=== PATIENT | female | born 1945 | race Caucasian/White ===

== ENCOUNTER 2018-06-21 05:57 | Emergency (ER) | payer MEDICARE ==
[2018-06-21] MEDS ORDERED: Ibuprofen TAB* 600 MG PO ONE (06:15)
[2018-06-21 07:56] VITALS: BP 158/95
--- NOTE | 2018-06-21 07:56 | ED ---
Upper Extremity Pain - HPI Summary HPI Summary: Patient's symptoms she will female presenting to the ED with complaint of right arm and clavicle injury after falling approximately 11 PM last night. She endorses worsening pain over the midshaft of the right humerus is having difficulty with abduction and abduction. Symptoms resolved with internal rotation and flexion of the shoulder. There is ecchymosis to the midshaft of the humerus. Denies any other injuries. She has taken one hydrocodone at home with mild amount of relief. She has not been taking any ibuprofen at this time. She is never injured the arm before. - History of Current Complaint Chief Complaint: EDSjuanaldBreej Stated Complaint: FALL, RIGHT SHOULDER INJURY Time Seen by Provider: 06/21/18 06:01 Hx Obtained From: Patient Mechanism Of Injury: Direct Blow Onset/Duration: Started Hours Ago Timing: Constant Severity Initially: Moderate Severity Currently: Moderate Pain Location: Shoulder, Arm Character: Aching Aggravating Factor(s): Lifting, Internal/External Rotation, Abduction, Adduction Alleviating Factor(s): Other - Internal rotation Associated Signs & Symptoms: Positive: Bruising. Negative: Swelling, Redness, Numbness/Tingling, Chest Pain Related History: Dominant Hand Right - Risk Factors Non-Orthopedic Risk Factor: Negative DVT Risk Factors: Negative Septic Arthritis Risk Factor: Negative Compartment Syndrome Risk Factors: Pain - Allergies/Home Medications Allergies/Adverse Reactions: Allergies Allergy/AdvReac Type Severity Reaction Status Date / Time ampicillin Allergy Hives Verified 06/21/18 06:03 PMH/Surg Hx/FS Hx/Imm Hx Previously Healthy: Yes - Cancer History Hx Chemotherapy: No Hx Radiation Therapy: No - Immunization History Hx Pertussis Vaccination: No Immunizations Up to Date: Unable to Obtain/Confirm Infectious Disease History: No Infectious Disease History: Denies: Traveled Outside the [place] in Last 30 Days - Social History Occupation: Unemployed Lives: With Family Alcohol Use: None Hx Substance Use: No Substance Use Type: Reports: None Hx Tobacco Use: No Smoking Status (MU): Never Smoked Tobacco Review of Systems Constitutional: Negative Negative: Fever, Chills, Fatigue, Skin Diaphoresis Negative: Palpitations, Chest Pain Negative: Shortness Of Breath, Cough Genitourinary: Negative Positive: no symptoms reported Positive: Arthralgia, Myalgia Positive: Bruising Neurological: Negative All Other Systems Reviewed And Are Negative: Yes Physical Exam Triage Information Reviewed: Yes Vital Signs On Initial Exam: Initial Vitals Temp Pulse Resp BP Pulse Ox 97.8 F 85 16 167/92 96 06/21/18 05:59 06/21/18 05:59 06/21/18 05:59 06/21/18 05:59 06/21/18 05:59 Vital Signs Reviewed: Yes Appearance: Positive: Well-Appearing, Well-Nourished Skin: Positive: Warm, Skin Color Reflects Adequate Perfusion Head/Face: Positive: Normal Head/Face Inspection Eyes: Positive: EOMI, AZAEL, Conjunctiva Clear Respiratory/Lung Sounds: Positive: Clear to Auscultation, Breath Sounds Present Cardiovascular: Positive: Normal, RRR, Pulses are Symmetrical in both Upper and Lower Extremities Musculoskeletal: Positive: Pain @ - right humerus and clavicle pain Neurological: Positive: Speech Normal Psychiatric: Positive: Normal, Affect/Mood Appropriate Diagnostics - Vital Signs Vital Signs Temp Pulse Resp BP Pulse Ox 06/21/18 07:21 154/88 06/21/18 05:59 97.8 F 85 16 167/92 96 - Laboratory Lab Statement: Any lab studies that have been ordered have been reviewed, and results considered in the medical decision making process. Course/Dx - Course Course Of Treatment: During the course of treatment, the patient's evaluated for pain to the humerus and clavicle after sustaining a fall yesterday. There is ecchymosis to the mid shaft of the humerus. X-ray of the humerus and clavicle are obtained which shows no acute findings. X-rays were read by myself , Chelsea Coombs PA-C as well as Dr. Santana and Dr. Hartman. We'll await for final reads and call if necessary for any differing results. She is given ibuprofen 6 her milligrams while in the ED. Sling is given. Follow up with orthopedics is given, specifically for any fracture identified. - Diagnoses Provider Diagnoses: Arm contusion Discharge - Sign-Out/Discharge Documenting (check all that apply): Patient Departure - Discharge Plan Condition: Stable Disposition: HOME Patient Education Materials: Contusion in Adults (ED) Referrals: Felipe Staples MD [Primary Care Provider] - Radha Edwards MD [Medical Doctor] - Additional Instructions: Ibuprofen 600mg three times daily Keep the arm in the sling for comfort If you develop worsening pain or worsening symptoms - follow up with orthopedics Keep movement in the arm and attempt to move it every few hours - Billing Disposition and Condition Condition: STABLE Disposition: Home
--- NOTE | 2018-06-21 08:07 | RAD ---
Indication: Fall, right shoulder injury. 2 views of the right clavicle demonstrates AC joint arthritis. No fracture is identified. Superiorly subluxed humeral head is noted. IMPRESSION: Superiorly subluxed humeral head with AC joint arthritis. No fracture of the clavicle is noted. R1
--- NOTE | 2018-06-21 08:14 | RAD ---
Indication: Fall, right humerus injury. 2 views of the right humerus demonstrates no fracture. No other bone or joint abnormality is noted. IMPRESSION: No fracture of the right humerus noted. R1
== END 2018-06-21 07:55 | disposition home or self-care (01) ==
LOC: ED 05:57
DX: S40.021A Contusion of right upper arm, initial encounter (principal); M79.601 Pain in right arm; W19.XXXA Unspecified fall, initial encounter; Y92.9 Unspecified place or not applicable
CPT/HCPCS: 99282; A9270-GY

== ENCOUNTER 2018-08-30 10:07 | Emergency (ER) | payer MEDICARE ==
--- OUTSIDE RECORDS SUMMARY | 2018-08-30 10:17 | XMS REPORT ---
:1945 External Reference #:[id number] Author Organization [facility] Address [address] [place] [address] Phone [phone] Care Team Providers Name Role Phone Felipe Staples MD Primary Care Physician Unavailable Payers Type Date Identification Numbers Payment Provider Subscriber Commercial Policy Number: [id number] [employer] Medicare China Silva PayID: [id number] [address] [place] [address] Problems Date Description Provider Status Onset: 08/01/2018 Full thickness rotator cuff tear Jamie Landin MD Active Onset: 08/01/2018 Localized, primary osteoarthritis of the Jamie Landin MD Active shoulder region Family History Date Family Member(s) Problem(s) Comments General Diabetes General Heart Disease General Hypertension General Stroke General Cancer General Rheumatoid Arthritis Father [place] age 51 Mother Hypercholesterolemia Social History Type Date Description Comments Marital Status Lives With Spouse Occupation Retired ETOH Use Occasionally consumes alcohol Smoking Patient has never smoked Recreational Drug Use Denies Drug Use Daily Caffeine Consumes on average 1 cup of regular coffee per day Exercise Type/Frequency Exercises sporadically Allergies, Adverse Reactions, Alerts Date Description Reaction Status Severity Comments 07/09/2018 Ampicillin active Medications Medication Date Status Form Strength Qnty SIG Indications Ordering Provider Atenolol 08/28/ Active Tablets 25mg 30tabs 1 by Gabriel 2018 mouth qd Gaston Munguia M.D. Metformin HCL / Active Tablets 1000mg take 1 Darlow, 0000 tab po Felipe Avila bid Losartan 00/ Active Tablets 50mg take 1 po Darlow, Potassium 0000 daily Felipe Avila MD Hydrocodone-Aceta / Active Tablets 5-325mg 1 po Darlow, minophen 0000 every 6 Felipe A., hours prn MD for pain Glipizide ER / Active Tablets ER 5mg take 3 Darlow, 0000 24HR tabs po Felipe A., in the am Omeprazole / Active Capsules 20mg 1 capsule Darlow, 0000 DR po daily Felipe Avila, Amlodipine / Active Tablets 10mg take 1 Darlow, Besylate 0000 tab po Felipe A., daily Duloxetine HCL / Active Caps DR 60mg 1 po Joseluis, 0000 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 , 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 Multivitamin / Active 1 tab po Unknown 0000 daily Aspirin 81 Low / Active 1 by Unknown Dose 0000 mouth every day Fish Oil / Active Capsules 1200mg 1 capsule Unknown 0000 po daily Valerian Root / Active Capsules 300-600 Unknown 0000 mg at bedtime Econazole Nitrate / Active Cream 1% apply 1-2 Unknown 0000 times every day to affected areas Red Yeast Rice / Active Capsules 600mg 1 Unknown Extract 0000 capsules po bid Colace / Active Capsules 100mg 1 tab by Unknown 0000 mouth 2 times a day Meclizine HCL / Active Tablets 25mg 1 tablet Unknown 0000 every 6 hours as needed for vertigo Garlic / Active Capsules 1000mg 1 capsule Unknown 0000 po daily Voltaren / Active Gel 1% apply 2 Unknown 0000 grams to painful areas four times a day Cranberry Extract / Active Tablets 450mg 1 cap by Unknown 0000 mouth daily Vitamin B-12 / Active Tablets 1000mcg 1 by Unknown 0000 mouth twice daily Vitamin D3 / Active Capsules 5000Unit 1 by Unknown 0000 mouth every day Cyclobenzaprine / Hx Tablets 5mg take 1-2 Unknown HCL 0000 - tablet 07/16/ 2017 night at bedtime prn Probiotic Daily / Hx Capsules 1 by Unknown 0000 - mouth 07/16/ every day 2017 Medications Administered in Office Medication Date Status Form Strength Qnty SIG Indications Ordering Provider Inj, Administered Injection Vin Lindsey Regadenoson, 018 Jessica Caballero 0.1 MG Technetium TC Administered Injection Vin Lindsey 99M 018 Jessica Caballero Tetrofosmin, Per Unit Dose Up To 40 Millicuries Vital Signs Date Vital Result Comment 08/29/2018 Height 64.5 inches 5'4.50" Weight 189.00 lb BP Systolic 144 mmHg BP Diastolic 78 mmHg Respiratory Rate 18 /min Body Temperature 97.8 F Pain Level 10 BMI (Body Mass Index) 31.9 kg/m2 08/28/2018 Height 64.5 inches 5'4.50" Weight 187.00 lb w/shoes Heart Rate 94 /min BP Systolic Sitting 152 mmHg Lue reg cuff BP Diastolic Sitting 102 mmHg Lue reg cuff BMI (Body Mass Index) 31.6 kg/m2 Ejection Fraction 55-60% Echo 07/31/18 08/01/2018 Height 64.5 inches 5'4.50" Weight 187.00 lb Heart Rate 74 /min BP Systolic 128 mmHg BP Diastolic 72 mmHg Respiratory Rate 12 /min Pain Level 10 BMI (Body Mass Index) 31.6 kg/m2 07/30/2018 Height 64.5 inches 5'4.50" Weight 189.00 lb BP Systolic 122 mmHg BP Diastolic 72 mmHg Respiratory Rate 16 /min Body Temperature 97.1 F Pain Level 8 BMI (Body Mass Index) 31.9 kg/m2 07/17/2018 Height 64.5 inches 5'4.50" Weight 189.00 lb w/shoes Heart Rate 90 /min BP Systolic Sitting 160 mmHg Lue lg cuff BP Diastolic Sitting 102 mmHg Lue lg cuff BMI (Body Mass Index) 31.9 kg/m2 07/09/2018 Height 64.5 inches 5'4.50" Weight 188.00 lb Heart Rate 84 /min BP Systolic 140 mmHg BP Diastolic 88 mmHg BMI (Body Mass Index) 31.8 kg/m2 Results Description No Information Procedures Date CPT Code Description Status 08/14/2018 88295 Stress Test Completed 08/14/2018 19680 Myocardial Perfusion Imaging Tomographic (Spect) Completed Multiple Studies 08/04/2018 99343 Holter Monitor Review (24 hr)dr review & interp only Completed 07/31/2018 76118 ECHO Transthoracic, Real-Time 2D With Doppler And Color Completed Flow 07/25/2018 14523 ECG Monitor/Recording W/Visual Superimposition Scanning Completed 07/17/2018 74123 EKG Tracing & Interpretation Completed Encounters Type Date Location Provider CPT E/M Dx Office Visit 08/01/2018 9:30a [facility] [place] [address] M19.011 C.MPia S46.011D Office Visit 07/30/2018 8:30a [facility], [address] W19.xxxD Maverick.Kori Lopez M25.511 S46.021D M75.121 Office Visit 07/17/2018 10:15a [facility] 58040 R94.31 Chelsea Munguia M.D. R55 E78.4 R00.2 R00.0 Office Visit 07/09/2018 9:45a [facility] M.D. 07935 M25.511 C.M.ADesirae M25.562 S43.421A W19.xxxA Plan of Care Future Appointment(s):09/23/2018 2:45 pm - Jamie Landin MD at [facility]09/05/2018 9:00 am - Nurse Visit cc at [facility]09/10 10:00 am - Starla Salcedo PA-C at [facility]2017 10:00 am - Jamie Landin MD at [facility]12/08/2018 1: 00 pm - Leo Kam MD at [facility]
--- OUTSIDE RECORDS SUMMARY | 2018-08-30 10:17 | XMS REPORT ---
:1945 External Reference #:[id number] Author Organization [employer] Address [address] [place] [address] Phone [phone] Care Team Providers Name Role Phone Felipe Staples MD Primary Care Physician Unavailable Payers Type Date Identification Numbers Payment Provider Subscriber Commercial Policy Number: [id number] [employer] Medicare China Silva PayID: [id number] [address] [place] [address] Problems Date Description Provider Status Onset: 08/01/2018 Localized, primary osteoarthritis of the Jamie Landin MD Active shoulder region Onset: 08/01/2018 Full thickness rotator cuff tear Jamie Landin MD Active Family History Date Family Member(s) Problem(s) Comments General Diabetes General Heart Disease General Hypertension General Stroke General Cancer General Rheumatoid Arthritis Father [place] age 51 Mother Hypercholesterolemia Social History Type [...] Form Strength Qnty SIG Indications Ordering Provider Metformin HCL 00/ Active Tablets 1000mg take 1 tab Darlow, 0000 po bid Felipe Avila MD Losartan 00/ Active Tablets 50mg take 1 po Darlow, Potassium 0000 daily Felipe Avila MD Hydrocodone-Aceta 00/ Active Tablets 5-325mg 1 po every Darlow, minophen 0000 6 hours vince Reyesn for pain Glipizide ER / Active Tablets ER 5mg take 3 Darlow, 0000 24HR tabs po in Felipe Avila, the am Omeprazole / Active Capsules 20mg 1 capsule Dar, 0000 DR po daily Felipe Avila MD Amlodipine / Active Tablets 10mg take 1 tab Darlow, Besylate 0000 po daily Felipe Avila MD Duloxetine HCL / Active Caps DR 60mg 1 po daily Joseluis, 0000 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 , 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 Multivitamin / Active 1 tab po Unknown 0000 daily Aspirin 81 Low 00/ Active 1 by mouth Unknown Dose 0000 every day Fish Oil / Active Capsules 1200mg 1 capsule Unknown 0000 po daily Valerian Root / Active Capsules 300-600 mg Unknown 0000 at bedtime Econazole Nitrate / Active Cream 1% apply 1-2 Unknown 0000 times every day to affected areas Red Yeast Rice / Active Capsules 600mg 1 capsules Unknown Extract 0000 po bid Colace / Active Capsules 100mg [...] B-12 / Active Tablets 1000mcg 1 by mouth Unknown 0000 twice daily Vitamin D3 / Active Capsules 5000Unit 1 by mouth Unknown 0000 every day Cyclobenzaprine / Hx Tablets 5mg take 1-2 Unknown HCL 0000 - tablet 2017 night at bedtime prn Probiotic Daily / Hx Capsules 1 by mouth Unknown 0000 - every day 2017 Vital Signs Date Vital Result Comment 08/01/2018 Height 64.5 inches 5'4.50" Weight 187.00 [...] BMI (Body Mass Index) 31.8 kg/m2 Results Test Date Test Result H/L Range Note Order 07/31/2018 Echocardiogram <pending> Procedures Date CPT Code Description Status 07/31/2018 40994 ECHO Transthoracic, Real-Time 2D With Doppler And Color Completed Flow 07/25/2018 82929 ECG Monitor/Recording W/Visual Superimposition Scanning Completed 07/17/2018 67613 EKG Tracing & Interpretation Completed Encounters Type Date Location Provider CPT E/M Dx Office Visit 07/09/2018 [facility] M.D. 57674 M25.511 9:45a [facility] M25.562 S43.421A W19.xxxA Plan of Care Future Appointment(s):08/29/2018 9:00 am - Jamie Landin MD at [facility]12/08/2018 1:00 pm - Leo Kam MD at [facility]08/28/2018 3:40 pm - Gabriel Munguia M.D. at [facility] 11:00 am - Gabriel Munguia M.D. at [facility]2017 - Jamie Landin, MDM75.121 Complete rotatr-cuff tear/ruptr of r shoulder, not zjwzbbD04.011 Primary osteoarthritis, right shoulderFollow up:Follow up: h and p
--- OUTSIDE RECORDS SUMMARY | 2018-08-30 10:17 | XMS REPORT ---
:1945 External Reference #:[id number] Author Organization [facility] Address [address] [place] [address] Phone [phone] Care Team Providers Name Role Phone Felipe Staples MD Primary Care Physician Unavailable Payers Type Date Identification Numbers Payment Provider Subscriber Commercial Policy Number: [id number] [employer] Medicare China Silva PayID: [id number] [address] [place] [address] Problems Date Description Provider Status Onset: 08/01/2018 Full thickness rotator cuff tear Jamie Landin MD Active Onset: 08/01/2018 Localized, primary osteoarthritis of the Jamie Landin MD Active shoulder region Family History Date Family Member(s) Problem(s) Comments General Diabetes General Heart Disease General Hypertension General Stroke General Cancer General Rheumatoid Arthritis Father [place] age 51 Mother Hypercholesterolemia Social History Type [...] po Joseluis, 0000 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 , 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 Multivitamin / Active 1 tab po Unknown [...] Millicuries Vital Signs Date Vital Result Comment 08/28/2018 Height 64.5 inches 5'4.50" Weight 187.00 [...] Procedures Date CPT Code Description Status 08/14/2018 91046 Stress Test Completed 08/14/2018 42875 Myocardial Perfusion Imaging Tomographic (Spect) Completed Multiple Studies 08/04/2018 17265 Holter Monitor Review (24 hr)dr review & interp only Completed 07/31/2018 61405 ECHO Transthoracic, Real-Time 2D With Doppler And Color Completed Flow 07/25/2018 85567 ECG Monitor/Recording W/Visual Superimposition Scanning Completed 07/17/2018 50489 EKG Tracing & Interpretation Completed Encounters Type Date Location Provider CPT E/M Dx Office Visit 08/28/2018 3:40p [facility] Gabriel Munguia, 99357 I49.1 MAriane I10 E78.2 I71.9 Office Visit 08/01/2018 9:30a [facility] [place] [address] M19.011 Rebekah S46.011D Office Visit 07/30/2018 8:30a [facility], [address] W19.xxxD Rebekah Lopez M25.511 S46.021D M75.121 Office Visit 07/17/2018 10:15a [facility] [address] R94.31 Chelsea Munguia M.D. R55 E78.4 R00.2 R00.0 Office Visit 07/09/2018 9:45a [facility] M.D. 81361 M25.511 Maverick.MPia M25.562 S43.421A W19.xxxA Plan of Care Future Appointment(s):09/05/2018 9:00 am - Nurse Visit cc at [facility] 109/10/2018 10:00 am - Starla Salcedo PA-C at [facility]09/10/2018 10:00 am - Jamie Landin MD at [facility]08/29/2018 9:00 am - Jamie Landin MD at [facility] 1:00 pm - Leo Kam MD at [facility] Glishq4408/28/2018 - Gabriel Munguia M.D.I49.1 Atrial premature [id number] Essential ( primary) hypertensionFollow up:one week BP check ppxhzG95.2 Mixed ccrqdwogrfztioE50.9 Aortic aneurysm of unspecified site, without ruptureNew Orders:EchocardiogramFollow up:one yr ov
--- NOTE | 2018-08-30 10:40 | ED ---
Dizziness - HPI Summary HPI Summary: This patient is a 73 year old F presenting to [facility] with a chief complaint of vertigo since two days ago. Patient is having [place] on her rotator cuff [place] [facility] [place] and was here yesterday for a pre-op. The patient has Hx of vertigo and is confident this is what it is. The vertigo gets worse every time her eyes open and gets better when she closes her eyes. She also complains of pain in her ears, blurred vision, and headache. The patient denies nasal congestion, pain in her extremities, chest pain, and SOB. - History Of Current Complaint Chief Complaint: EDDizziness Stated Complaint: VERTIGO Time Seen by Provider: 08/30/18 10:24 Hx Obtained From: Patient Timing: Constant Severity Initially: Mild Severity Currently: Mild Character: Head Spinning, Dizzy Aggravating Factor(s): Headache Alleviating Factor(s): Closing Eyes Associated Signs And Symptoms: Negative: Chest Pain, SOB, Fever - Allergies/Home Medications Allergies/Adverse Reactions: Allergies Allergy/AdvReac Type Severity Reaction Status Date / Time ampicillin Allergy Hives Verified 08/30/18 10:11 PMH/Surg Hx/FS Hx/Imm Hx Endocrine/Hematology History: Reports: Hx Diabetes Cardiovascular History: Reports: Hx Hypertension Denies: Hx Pacemaker/ICD History: Denies: Hx Renal Disease Sensory History: Denies: Hx Hearing Aid Psychiatric History: Denies: Hx Panic Disorder - Cancer History Hx Chemotherapy: No Hx Radiation Therapy: No - Surgical History Surgery Procedure, Year, and Place: HYSTERECTOMY. CARPAL TUNNEL RIGHT WRIST. LEFT KNEE REPLACEMENT. LEFT SHOULDER ROTATOR CUFF REPAIR Infectious Disease History: No Infectious Disease History: Denies: Traveled Outside the [place] in Last 30 Days - Family History Known Family History: Positive: Hypertension - Mother - Social History Alcohol Use: None Hx Substance Use: No Substance Use Type: Reports: None Hx Tobacco Use: No Smoking Status (MU): Never Smoked Tobacco Review of Systems Negative: Fever, Chills Positive: Blurred Vision Negative: Chest Pain Negative: Shortness Of Breath Neurological: Other - Dizziness Positive: Headache All Other Systems Reviewed And Are Negative: Yes Physical Exam - Summary Physical Exam Summary: VITAL SIGNS: Reviewed. GENERAL: Patient is a well-developed and nourished FEMALE who is lying comfortable in the stretcher. Patient is not in any acute respiratory distress. HEAD AND FACE: No signs of trauma. No ecchymosis, hematomas or skull depressions. No sinus tenderness. EYES: PERRLA, EOMI x 2, No injected conjunctiva, no nystagmus. EARS: Hearing grossly intact. Ear canals and tympanic membranes are within normal limits. Left ear filled with wax. MOUTH: Oropharynx within normal limits. NECK: Supple, trachea is midline, no adenopathy, no JVD, no carotid bruit, no c- spine tenderness, neck with full ROM. CHEST: Symmetric, no tenderness at palpation LUNGS: Clear to auscultation bilaterally. No wheezing or crackles. CVS: Regular rate and rhythm, S1 and S2 present, no murmurs or gallops appreciated. ABDOMEN: Soft, non-tender. No signs of distention. No rebound no guarding, and no masses palpated. Bowel sounds are normal. EXTREMITIES: FROM in all major joints, no edema, no cyanosis or clubbing. NEURO: Alert and oriented x 3. No acute neurological deficits. Speech is normal and follows commands. SKIN: Dry and warm Triage Information Reviewed: Yes Vital Signs On Initial Exam: Initial Vitals Temp Pulse Resp BP Pulse Ox 97.4 F 73 16 166/80 95 08/30/18 10:11 08/30/18 10:11 08/30/18 10:11 08/30/18 10:11 08/30/18 10:11 Vital Signs Reviewed: Yes Diagnostics - Vital Signs Vital Signs Temp Pulse Resp BP Pulse Ox 08/30/18 10:11 97.4 F 73 16 166/80 95 - Laboratory Result Diagrams: 08/30/18 10:47 08/30/18 10:47 Lab Statement: Any lab studies that have been ordered have been reviewed, and results considered in the medical decision making process. - CT Brain CT CT Interpretation: No Acute Changes CT Interpretation Completed By: Radiologist - No intracranial mass or hemorrhage is noted. ED Provider has reviewed this report. - EKG 1113 Cardiac Rate: NL - 66 BPM EKG Rhythm: Sinus Rhythm ST Segment: Normal EKG Comparison: No Significant Change - From 10/06/07 Dizzy Course/Dx - Course Assessment/Plan: This patient is a 73 year old F presenting to [facility] with a chief complaint of vertigo since two days ago. Patient is having surgery on her rotator cuff at [facility] [place] two [place] and was here yesterday for a pre-op. The patient has Hx of vertigo and is confident this is what it is. The vertigo gets worse every time her eyes open and gets better when she closes her eyes. She also complains of pain in her ears, blurred vision, and headache. The patient denies nasal congestion, pain in her extremities, chest pain, and SOB. Blood work without any significant abnormality except for glucose of 229 and magnesium 1.1. EKG shows no acute abnormalities. Head CT shows no acute interconnected pathology. Chest x-ray was was done yesterday and shows no acute cardiopulmonary disease. In the ED course the patient was given magnesium by mouth. The patient also was given meclizine and symptoms resolved. At this time the patient is ambulating with a steady gait and she is neurological intact. The patient requested to be discharged home and she will follow-up with the primary care physician. I discussed all the findings and test results with the patient. Patient was instructed to return to the emergency room immediately if any of the symptoms return or worsens. Plan of care was discussed with the patient and understands and agrees. All questions were answered at patient satisfaction. There were no further complaints or concerns. Lung exam before discharge: CTA B/L. Good air exchange. No wheezing or crackles heard. CVS: S1 and S2 present. No murmurs appreciated. Patient is alert and oriented x 3. Patient is hemodynamically stable. Patient will be discharged home with follow up PCP in the next 2-3 days - Diagnoses Differential Diagnosis/HQI/PQRI: CVA, Dysrhythmia, Myocardial Infarction, Transient Ischemic Attack, Vasovagal Reaction Provider Diagnoses: Vertigo Discharge - Sign-Out/Discharge Documenting (check all that apply): Patient Departure - Discharge - Discharge Plan Condition: Stable Disposition: HOME Prescriptions: Magnesium Oxide TAB* [MagOx 400 TAB*] 800 mg PO DAILY #20 tab Meclizine TAB* [Antivert 12.5 TAB*] 25 mg PO TID PRN #30 tab PRN Reason: Vertigo Patient Education Materials: Vertigo (ED) Referrals: Felipe Staples MD [Primary Care Provider] - - Billing Disposition and Condition Condition: STABLE Disposition: Home - Attestation Statements Document Initiated by Scribe: Yes Documenting Scribe: Darrel Acosta Provider For Whom Mauro is Documenting (Include Credential): Yeyo Hogan MD Scribe Attestation: I, Darrel Acosta, scribed for Yeyo Hogan MD on 08/31/18 at 0744. Scribe Documentation Reviewed: Yes Provider Attestation: The documentation as recorded by the scribe, Darrel Acosta accurately reflects the service I personally performed and the decisions made by me, Yeyo Hogan MD
[2018-08-30] MEDS ORDERED: Meclizine TAB* 12.5 MG PO ONE (10:42)
[2018-08-30 10:53] LABS: ABS Basophils 0.1 10^3/ul (0-0.2); ABS Eosinophils 0.3 10^3/ul (0-0.6); ABS Lymphocytes 2.4 10^3/ul (1.0-4.8); ABS Monocytes 0.5 10^3/ul (0-0.8); ABS Neutrophils 3.3 10^3/ul (1.5-7.7); ABS Nucleated RBC 0 10^3/ul; Eosinophil % 5.3 % (0-6); Hematocrit 43 % (35-47); Hemoglobin 14.7 g/dl (12.0-16.0); Lymphocyte % 36.7 % (25-47); Mean Corpuscular HGB Conc 34 g/dl (31-36); Mean Corpuscular Hemoglobin 29 pg (27-31); Mean Corpuscular Volume 85 fL (80-97); Mean Platelet Volume 10.1 um3 (7.4-10.4); Nucleated Red Blood Cells % 0.1; Platelet Count 161 10^3/ul (150-450); Red Blood Count 5.04 10^6/ul (4.00-5.40); Red Cell Distribution Width 13 % (10.5-15); White Blood Count 6.6 10^3/ul (3.5-10.8)
--- NOTE | 2018-08-30 11:22 | RAD ---
Indication: Dizziness. CT of the brain performed without IV contrast. No prior study is available for comparison. Ventricular structures are midline. No midline shift is noted. The extra-axial spaces are unremarkable. There is no evidence of intracranial mass or hemorrhage. No other high or low density lesions are identified. Mastoid air cells and paranasal sinuses are otherwise unremarkable. There is some right-sided ethmoid sinusitis noted. IMPRESSION: NO INTRACRANIAL MASS OR HEMORRHAGE IS NOTED.
[2018-08-30 13:57] VITALS: BP 143/78
[2018-08-30] MEDS ORDERED: Magnesium Oxide TAB* 400 MG PO ONE (13:58)
== END 2018-08-30 13:56 | disposition home or self-care (01) ==
LOC: ED 10:07
DX: R42 Dizziness and giddiness (principal); H53.8 Other visual disturbances; R51 Headache; Z96.652 Presence of left artificial knee joint; Z88.0 Allergy status to penicillin
CPT/HCPCS: 36415; 70450; 80053; 83605; 83735; 84443; 84484; 85025; 86140; 93005; 99282; A9270-GY

== ENCOUNTER 2018-09-10 09:45 | Inpatient (IN) | payer MEDICARE ==
--- NOTE | 2018-08-29 18:38 | HP ---
Please see complete H&P MTDD
--- NOTE | 2018-08-29 18:46 | HP ---
AMENDED REPORT NOW INCLUDES COSIGNER DESIGNATION - ESIGNED BEFORE ADJUSTMENTS PREOPERATIVE HISTORY AND PHYSICAL: DATE OF ADMISSION/SURGERY: 09/10/18 DATE OF OFFICE VISIT: 08/29/18 ATTENDING SURGEON: Dr. Jamie Landin.* (DICTATED BY YAHIR CONNOLLY) PROCEDURE: Right total shoulder reverse. CHIEF COMPLAINT: Right shoulder pain. HISTORY OF PRESENT ILLNESS: China is a 73-year-old female who presents to the clinic for right shoulder pain due to glenohumeral joint osteoarthritis and a massive rotator cuff tear. She has failed conservative measures and, therefore , agreed to undergo a right total shoulder reverse with Dr. Landin on 09/10/18. She has had recent issues with her teeth and was to have 10 teeth taken out next week; however, is willing to postpone this so that she can have her total shoulder done. PAST MEDICAL HISTORY: Hypertension, high cholesterol, type 2 diabetes. PAST SURGICAL HISTORY: Left rotator cuff repair, left knee surgery, right hand surgery. The patient denies prior complications with anesthesia. MEDICATIONS: 1. Atenolol 25 mg one by mouth daily. 2. Metformin 1000 mg one by mouth twice daily. 3. Losartan potassium 50 mg take one by mouth daily. 4. [place] 5/325 one every 6 hours as needed for pain. 5. Glipizide 5 mg take 3 tabs by mouth in the morning. 6. Omeprazole 20 mg one by mouth daily. 7. Amlodipine besylate 10 mg one by mouth daily. 8. Duloxetine 60 mg one by mouth daily. 9. Multivitamin one tab daily. 10. Aspirin low dose 81 mg one by mouth every day. 11. Fish oil 1200 mg one capsule p.o. daily. 12. Valerian Root 300/600 mg at bedtime. 13. Econazole nitrate 1% apply 1 to 2 times every day to affected areas. 14. Red yeast rice extract 600 mg one capsule by mouth twice a day. 15. Colace 100 mg one by mouth twice a day. 16. Meclizine 25 mg one by mouth every 6 hours as needed for vertigo. 17. Garlic 1000 mg one cap daily. 18. Voltaren 1% apply 2 g to painful areas 4 times a day. 19. Cranberry extract 450 mg one cap daily. 20. Vitamin B 12 1000 mcg one by mouth twice a day. 21. Vitamin D3 one by mouth every day. ALLERGIES: AMPICILLIN. FAMILY HISTORY: Positive for diabetes, heart disease, hypertension, stroke, cancer, rheumatoid arthritis. SOCIAL HISTORY: She lives with her . She is retired. She denies tobacco or drug use. She reports occasional alcohol consumption. She is right hand dominant. REVIEW OF SYSTEMS: A 14-point review of systems was reviewed with the patient. Positive for current complaint, otherwise negative. Denies fever, chills, chest pain, shortness of breath, history of DVT or PE, history of bleeding disorders, history of MRSA. PHYSICAL EXAMINATION GENERAL: A 73-year-old, well-developed, well-nourished female, in no acute distress. Alert and oriented x3. Appropriate mood and affect. Appropriate balance and coordination of the upper extremities. VITAL SIGNS: Height 64.5, weight 189, blood pressure 144/78, respiratory rate 18, temperature 97.8, BMI of 31.9. HEENT: Normocephalic, atraumatic. PERRLA. Throat clear. NECK: Supple. PULMONARY: Lungs are clear to auscultation bilaterally. No wheezing, rhonchi, or rales. CARDIO: Regular rate and rhythm. S1 and S2. No murmurs, gallops, or rubs. No edema. ABDOMEN: Positive bowel sounds, soft, nontender. MUSCULOSKELETAL: Right upper extremity, skin is intact. No warmth or erythema. Nontender to palpation. Forward flexion 150, abduction 145, external rotation 10, internal rotation to lateral hip +4/5 strength to rotator cuff testing with pain. Positive impingement with Speed, [place]-Moe, and [place]' Charlie. +2 radial pulse. Sensation intact to light touch distally. Left upper extremity, skin is intact. No warmth or erythema. Nontender to palpation, full pain free range of motion. Neurovascularly intact. NEUROLOGIC: Alert and oriented x 3. Cranial nerves grossly intact. Sensation is intact to light touch. DIAGNOSTIC STUDIES: MRI revealed superior migration of the humeral head with a full-thickness retracted tear of the supraspinatus and the infraspinatus tendon, moderate partial thickness tear of the subscapularis tendon and biceps tendon, rupture with glenohumeral joint osteoarthritis. ASSESSMENT: Right total shoulder massive rotator cuff tear and glenohumeral joint osteoarthritis. PLAN: The patient is scheduled to undergo a right total shoulder reverse with Dr. Ladnin on 09/10/18. She will follow up 10 to 14 days postop for suture removal. She was instructed to stop aspirin one week prior to surgery. Percocet will be used for postop pain medication and she is allergic to AMPICILLIN, but it gives her hives. She is not sure if she has had Keflex before. So, she will be given Ancef before and after surgery. YAHIR CONNOLLY [id number]/[facility] #: [id number] MTDAnnette
[2018-09-30] MEDS ORDERED: Buffered Lidocaine 0.9% SYRIN* 5 ML/SYR SYRINGE INTRADERM ONE (13:50)
[2018-10-01] MEDS ORDERED: Famotidine IV* 10 MG/ML 2 ML (20 mg) IV ONE (06:00)
[2018-10-01] MEDS ORDERED: ceFAZolin 2 GM in NS PREMIX(*) 2 GM/100 ML BAG IVPB ONE (07:54)
[2018-10-01] MEDS ORDERED: Famotidine IV* 10 MG/ML 2 ML (20 mg) ONE (07:54)
[2018-10-01] MEDS ORDERED: Buffered Lidocaine 0.9% SYRIN* 5 ML/SYR SYRINGE ONE (07:54)
[2018-10-01] MEDS ORDERED: fentaNYL* 50 MCG/ML 2 ML VIAL (100 MCG VIAL) ONE ×2 (09:03→10:45)
[2018-10-01] MEDS ORDERED: Midazolam* 1 MG/ML 5 ML VIAL (5 MG) ONE (09:04)
[2018-10-01] MEDS ORDERED: Lidocaine 2% PF * 5 ML VIAL ONE (09:40)
[2018-10-01] MEDS ORDERED: ROPIVACAINE 5 MG/ML 30 ML BTL (0.5%) ONE (09:40)
[2018-10-01] MEDS ORDERED: KETAMINE HCL* 50 MG/ML 10 ML VIAL ONE (10:32)
[2018-10-01] MEDS ORDERED: Ondansetron INJ* 2 MG/ML VIAL ONE (10:54)
[2018-10-01] MEDS ORDERED: DiMENhydriNATE IV* 50 MG/ML VIAL ONE (10:54)
[2018-10-01] MEDS ORDERED: Dexamethasone IV* 4 MG/ML 1 ML (4 MG) ONE (10:54)
[2018-10-01] MEDS ORDERED: Ketorolac INJ* 30 MG/ML 1 ML VIAL ONE (10:54)
[2018-10-01] MEDS ORDERED: DiMENhydriNATE IV* 50 MG/ML VIAL IV PUSH PRN (11:21)
[2018-10-01] MEDS ORDERED: oxyCODONE TAB* 5 MG TAB PO PRN (11:21)
[2018-10-01] MEDS ORDERED: Acetaminophen TAB* 325 MG PO PRN (11:21)
[2018-10-01] MEDS ORDERED: Naloxone* 0.4 MG/ML 1 ML VIAL IV PRN (11:21)
[2018-10-01] MEDS ORDERED: Scopolamine 1.5 mg* PATCH TRANSDERM PRN (11:21)
[2018-10-01] MEDS ORDERED: Gabapentin CAP(*) 100 MG PO ONE (11:22)
[2018-10-01] MEDS ORDERED: Labetalol IV* 5 MG/ML 20 ML VIAL ONE (11:32)
[2018-10-01] MEDS ORDERED: Atracurium* 10 MG/ML 10 ML VIAL ONE (12:41)
[2018-10-01] MEDS ORDERED: Gabapentin CAP(*) 100 MG ONE (13:24)
[2018-10-01] MEDS ORDERED: Cyclobenzaprine TAB* 10 MG PO PRN (13:45)
[2018-10-01] MEDS ORDERED: oxyCODONE/Acetamin 5/325 MG* TAB PO PRN (13:45)
[2018-10-01] MEDS ORDERED: Polyethylene Glycol 3350* 17 GM PACKET PO PRN (13:45)
[2018-10-01] MEDS ORDERED: Bisacodyl SUPP* 10 MG SUPP PR PRN (13:45)
[2018-10-01] MEDS ORDERED: diPHENhydraMINE LIQ* 12.5 MG/5 ML UDC PO PRN (13:45)
[2018-10-01] MEDS ORDERED: traMADol TAB* 50 MG PO PRN (13:45)
[2018-10-01] MEDS ORDERED: Temazepam CAP* 15 MG PO PRN (13:45)
[2018-10-01] MEDS ORDERED: diPHENhydraMINE IV* 50 MG/ML 1 ml VIAL (BENADRYL) IV PRN (13:45)
[2018-10-01] MEDS ORDERED: Morphine VIAL* 4 MG/ML VIAL (1 ml vial) IV PRN (13:45)
[2018-10-01] MEDS ORDERED: Ondansetron INJ* 2 MG/ML VIAL IV PRN (13:45)
[2018-10-01] MEDS ORDERED: Magnesium Hydroxide LIQ* 30 ML UDC PO PRN (13:45)
[2018-10-01] MEDS ORDERED: Ondansetron ODT TAB* 4 MG PO PRN (13:45)
[2018-10-01] MEDS ORDERED: HYDROcodone/ACETAMIN 5-325 MG* 1 TAB PO PRN (13:59)
[2018-10-01] MEDS ORDERED: Meclizine TAB* 12.5 MG PO PRN (13:59)
[2018-10-01] MEDS ORDERED: HYDROmorphone INJ1* 1 MG/ML SYRINGE ONE (14:00)
[2018-10-01] MEDS ORDERED: Dextrose 50% Syringe 50 ML* 25 GM/50 ML SYRINGE IV PUSH PRN (14:01)
[2018-10-01] MEDS: HYDROmorphone INJ1* 1 MG/ML SYRINGE IV PRN ×3 (14:02→14:18)
[2018-10-01] MEDS ORDERED: oxyCODONE TAB* 5 MG TAB ONE (14:11)
[2018-10-01] MEDS: Acetaminophen TAB* 325 MG PO SCH ×2 (15:44→21:55)
[2018-10-01] MEDS: oxyCODONE TAB* 5 MG TAB PO PRN ×2 (16:42→23:28)
[2018-10-01] MEDS: ceFAZolin 1 GM in Dextrose (*) 1 GM/50 ML BAG IVPB SCH (17:48)
[2018-10-01] MEDS: Insulin LISPRO* 1 UNITS UNIT SUBCUT SCH ×2 (17:49→21:47)
[2018-10-01] MEDS ORDERED: Atenolol TAB* 25 MG PO SCH (18:00)
[2018-10-01] MEDS ORDERED: DULoxetine DR CAP* 60 MG CAP.DR PO SCH (18:00)
[2018-10-01] MEDS ORDERED: Losartan TAB* 25 MG PO SCH (18:00)
[2018-10-01] MEDS ORDERED: amLODIPine TAB* 5 MG PO SCH (18:00)
[2018-10-01] MEDS ORDERED: Cholecalciferol TAB* 1000 UNITS PO SCH (18:00)
[2018-10-01] MEDS: Cyanocobalamin TAB* 500 MCG PO SCH (21:44)
[2018-10-01] MEDS: Docusate CAP* 100 MG PO SCH (21:44)
[2018-10-01] MEDS: metFORMIN* 1,000 MG TAB PO SCH (21:44)
[2018-10-01] MEDS: oxyCODONE/Acetamin 5/325 MG* TAB PO PRN (21:45)
[2018-10-02] MEDS: ceFAZolin 1 GM in Dextrose (*) 1 GM/50 ML BAG IVPB SCH ×2 (01:47→10:11)
[2018-10-02] MEDS: oxyCODONE/Acetamin 5/325 MG* TAB PO PRN ×2 (01:47→08:23)
[2018-10-02] MEDS: Acetaminophen TAB* 325 MG PO SCH (05:48)
[2018-10-02] MEDS: oxyCODONE TAB* 5 MG TAB PO PRN ×2 (05:52→11:29)
[2018-10-02 05:53] LABS: Hematocrit 36 % (35-47); Hemoglobin 12.3 g/dl (12.0-16.0); Mean Platelet Volume 9.9 fL (7.4-10.4); Platelet Count 188 10^3/ul (150-450)
[2018-10-02] MEDS: Docusate CAP* 100 MG PO SCH (08:18)
[2018-10-02] MEDS: metFORMIN* 1,000 MG TAB PO SCH (08:18)
[2018-10-02] MEDS: Cyanocobalamin TAB* 500 MCG PO SCH (08:18)
[2018-10-02] MEDS: Insulin LISPRO* 1 UNITS UNIT SUBCUT SCH ×2 (08:20→12:18)
[2018-10-02] MEDS ORDERED: Magnesium Oxide TAB* 400 MG PO SCH (09:00)
[2018-10-02] MEDS ORDERED: Omeprazole CAP* 20 MG PO SCH (09:00)
--- NOTE | 2018-10-02 11:40 | PN ---
Progress Note - Progress Note Date of Service: 10/02/18 SOAP: Subjective: [] Patient seen and examined at bedside. She feels well and desires DC home. RUE is painful though tolerable, no numbness or tingling of the extremity. Denies CP , SOB, dizziness, nausea. Objective: []General: Well appearing, NAD RUE: Sling and cryo unit in use. drain removed without complication, tolerated well by patient. Able to flex and extend at wrist, MTPs, PIPs, DIPs of all 5 digits. Thumbs up and okay sign intact. Sensation intact to light touch throughout all digits and hand. Cap refill less than two seconds distally and radial pulse 2+ Calves supple and nontender without erythema, edema or palpable cords Assessment: []POD 1 sp right total shoulder reverse Plan: []NWB RUE, PROM only no FF or abd past 90 no ER past 90, ok AROM elbow wrist and hand Fu Dr Landin 10-14 days Glucose elevated during stay, please follow up with PCP for control of diabetes DC home today Vital Signs Temp 98.0 F 10/02/18 07:13 Pulse 68 10/02/18 07:13 Resp 18 10/02/18 11:29 BP 141/69 10/02/18 07:13 Pulse Ox 96 10/02/18 07:13 Intake & Output 10/01/18 10/02/18 10/02/18 18:59 06:59 18:59 Intake Total 2100 1740 Output Total 950 1600 450 Balance 1150 140 -450 Weight 187 lb Intake: IV Fluids 2100 340 LR 2000 340 NS 100ML, Cefazolin 2G 100 Oral 1400 Output: Hemovac Amount #1 200 Urine 750 1400 450 Estimated Blood Loss 200 Laboratory Last Values Hgb 12.3 g/dl (12.0-16.0) 10/02/18 05:34 Hct 36 % (35-47) 10/02/18 05:34 Plt Count 188 10^3/ul (150-450) 10/02/18 05:34 MPV 9.9 fL (7.4-10.4) 10/02/18 05:34 Sodium 133 mmol/L (135-145) L 10/02/18 05:34 Potassium 4.0 mmol/L (3.5-5.0) 10/02/18 05:34 Chloride 98 mmol/L (101-111) L 10/02/18 05:34 Carbon Dioxide 25 mmol/L (22-32) 10/02/18 05:34 Anion Gap 10 mmol/L (2-11) 10/02/18 05:34 BUN 10 mg/dL (6-24) 10/02/18 05:34 Creatinine 0.60 mg/dL (0.51-0.95) 10/02/18 05:34 Est GFR ( Amer) 118.6 (>60) 10/02/18 05:34 Est GFR (Non-Af Amer) 98.0 (>60) 10/02/18 05:34 BUN/Creatinine Ratio 16.7 (8-20) 10/02/18 05:34 Glucose 205 mg/dL (70-100) H 10/02/18 05:34 POC Glucose (mg/dL) 194 mg/dL (70-100) H 10/02/18 07:41 Calcium 9.2 mg/dL (8.6-10.3) 10/02/18 05:34 Blood Type O Positive 10/01/18 08:24 Antibody Screen Negative 10/01/18 08:24
[2018-10-02] MEDS ORDERED: Enoxaparin(*) 40 MG/0.4 ML SYR SUBCUT SCH (12:00)
[2018-10-02 12:06] VITALS: BP 153/73
--- NOTE | 2018-10-04 09:45 | OP ---
CC: PCP, Dr. Staples * DATE OF OPERATION: 10/01/18 - ROOM #338 DATE OF : 45 SURGEON: Jamie Landin MD. ASSISTANTS: Starla Salcedo and Annie Saldaña. PRE-OP DIAGNOSIS: Right shoulder rotator cuff arthropathy. POST-OP DIAGNOSIS: Right shoulder rotator cuff arthropathy. OPERATIVE PROCEDURE: Right shoulder reverse arthroplasty with open biceps tenodesis. COMPLICATIONS: None. ESTIMATED BLOOD LOSS: 250 cc. OUTPUT DRAIN: 1. IMPLANTS: Aequalis Tornier reversed size 25 x 35 threaded post baseplate with an eccentric 36 mm glenosphere, Ascend Flex, size 2B humeral stem with a centered reversed tray and a +6 poly. INDICATIONS: China Silva is a 73-year-old female with rotator cuff arthropathy. She has pseudoparalysis and severe pain. She has failed conservative management. Risks and benefits were discussed at length included but not limited to bleeding; infection; damage to nerves, vessels, surrounding structures; wound nonhealing, persistent pain, need for further surgery, scarring, stiffness, incomplete relief of symptoms, risk of anesthesia as well as dislocation, fracture. DESCRIPTION OF PROCEDURE: The patient was greeted in the preoperative area by the attending surgeon. Correct extremity was marked and consent was confirmed. The patient underwent interscalene nerve block by the anesthesiologist after which she was brought back to the operating suite. She was placed in the supine position on the operating table. She then underwent general anesthesia and endotracheal intubation after which she was brought to the operating suite. She was placed in the lazy beach chair position. All bony prominences were padded. She was secured. The right arm was then prepped and draped in usual sterile fashion beginning with chlorhexidine soap, scrub and alcohol wipe and a final prep with ChloraPrep. After appropriate surgical pause indicating side, site, procedure, and administration of antibiotics, the deltopectoral incision was made sharply with 15 blade and soft tissues were carefully exposed. Deltopectoral interval was identified and the deltoid and cephalic vein were taken laterally. Pec was taken immediately. The clavipectoral fascia was exposed. There was abundant synovitis and inflammation that was present. The lateral aspect of the conjoint tendon was identified. The CA ligament was released and the conjoint tendon was freed. The patient obviously had rotator cuff arthropathy with superior migration of the humeral head. The pec was then released the proximal 1 to 2 cm. Then we released the biceps and was tenodesed using heavy nonabsorbable suture. The biceps was tenotomized proximal to that and followed proximally into the joint. The subscap was identified and released in a subscap peel fashion. It was then tagged with #5 Ethibond suture. There was evidence of full thickness massive tear of the supra and infraspinatus tendons. The head was then gently externally rotated and slowly dislocated. The head and neck were then carefully exposed. There was area of grade 3 to 4 changes to the humeral head. At this point, the provisional neck cut was made. The canal finder was then used to find the canal. The sizing guide was also placed. The size 1 was found to be appropriate at this level. A protection plate was placed and attention was directed to the glenoid. The glenoid was exposed. The biceps tendon was followed and then removed along with the superior labrum. The anterior aspect of the shoulder and the glenoid labrum were then exposed using electrocautery device. After releasing the superior, middle, and inferior glenohumeral ligaments, the labrum was also released with tension nylon sutures. A provisional starting point was placed, the patient's glenoid was very small. Once the appropriate start position was identified, the size 25 baseplate reamer was then used to gently ream. Then an 8 mm cannulated drill was then placed and then a 6.5 mm. Decision was made to place a 35 x 25 mm threaded baseplate. This was placed with excellent purchase. Interlocking screws were then placed. The patient's bone quality was poor and again this is a very small glenoid. Attempt was to capture bone. At this point, a centered glenosphere was then placed with excellent purchase and secured with a setscrew. The head was then brought to the wound and the stem was checked. The #1 was still found to be appropriate. Centered baseplate and trial was placed, but the shoulder was unable to be reduced. At this point, this was thought due to the patient's chronic superior humeral subluxation. Decision was made to reposition the glenoid more inferiorly to allow for the humerus to be more inferiorly displaced and trialing was begun and a size 2 stem was found to fit a little bit better. The humerus was trialed again and size 1 was found to be somewhat looser, therefore a size 2 stem was placed with excellent purchase. It was then trialed with +6 poly liner and found to be able to be reduced and taken through range of motion. Forward flexion 140, abduction 90, external rotation to about 50 degrees, internal rotation to the level of the buttock with the appropriate amount of shuck. At this point the final implants were brought to the field and size #2 humeral stem was then assembled on the back by the attending surgeon. The shoulder was then reduced and taken through range of motion and found to be similar. The wounds were then copiously irrigated with sterile saline. An intraarticular drain was placed. The wounds were copiously irrigated with sterile saline. The subscap was closed in a horizontal mattress configuration from the predrilled interosseous tunnels with #5 Ethibond sutures. Once the subscap was repaired, the wounds were irrigated again. The deltopectoral interval was closed with #2 Ethibond suture. The wounds were irrigated again. Skin was closed in layers with 2-0 Vicryl and 3-0 Monocryl. Sterile dressings were applied. She was placed in a regular sling. Cryo/Cuff was placed. She was awoken from anesthesia and transferred to PACU in stable condition. POSTOPERATIVE PLAN: She will be nonweightbearing. She will be in the sling for 6 weeks. She will be admitted for at least 24 hours of postoperative antibiotics as well as pain management. We will discharge the patient potentially on postop day 1. DVT prophylaxis will be Lovenox while in house. I will see the patient back in 10 to 14 days postop. [id number]/[facility] #: [id number] [facility]ACH HOSPITALAnnette
--- NOTE | 2018-10-14 15:06 | DS ---
DISCHARGE SUMMARY: DATE OF ADMISSION: 10/01/18. DATE OF DISCHARGE: 10/02/18 SURGEON/PROVIDER: Jamie Landin MD.* (DICTATED BY YAHIR LOUIE) PRE-OP DIAGNOSIS: Right shoulder rotator cuff arthropathy. OPERATIVE PROCEDURE: Right shoulder reverse arthroplasty with open biceps tenodesis. HISTORY: China Silva is a 73-year-old female with rotator cuff arthropathy. She has pseudoparalysis and severe pain. She has failed conservative management and elected to undergo a right shoulder reverse arthroplasty with open biceps tenodesis. HOSPITAL COURSE: The patient was admitted to [facility] on . She underwent a right shoulder reverse arthroplasty with open biceps tenodesis without complication. She recovered briefly in the PACU and was transferred to the short-stay surgical unit. On postop day 1, she is well appearing, in no acute distress. Sling and Cryo unit were in use. Drain removed without complications, tolerated well by the patient, able to flex and extend at the wrist, MCPs, PIPs, DIPs at all 5 digits. Sensation was intact distally. Cap refill less than 2 seconds distally and radial plus 2+. The patient was deemed to be medically and orthopedically stable for discharge to home. DISCHARGE DISPOSITION: Home. DISCHARGE MEDICATIONS: Include, 1. Omeprazole 20 mg p.o. q.a.m. 2. Glipizide p.o. q.a.m. 3. Aspirin 81 mg p.o. q.a.m. 4. Fish oil 1200 mg soft gel. 5. Garlic p.o. q.p.m. 6. Vitamin D3 5000 units p.o. q.p.m. 7. Metformin 1000 mg p.o. b.i.d. 8. Multivitamin 1 cap p.o. q.a.m. 9. Cyanocobalamin 500 micrograms p.o. b.i.d. 10. Amlodipine 5 mg p.o. q.p.m. 11. Losartan potassium 50 mg p.o. q.p.m. 12. Cyclobenzaprine 5 mg p.o. at bedtime p.r.n. 13. Colace 2-In-1 tablet, 2 tabs p.o. q.p.m. 14. Red rice yeast 600 mg p.o. b.i.d. 15. Duloxetine 60 mg p.o. q.p.m. 16. Atenolol 25 mg p.o. q.p.m. 17. Cranberry extract 450 mg p.o. q.p.m. 18. Meclizine 25 mg p.o. t.i.d. p.r.n. 19. Magnesium oxide 800 mg p.o. q.a.m. 20. Percocet 5/325 one to two tabs every 4 to 6 hours as needed for pain, maximum daily dose of 8. 21. Acetaminophen 975 mg p.o. q.8 hours p.r.n. 22. Docusate 100 mg p.o. b.i.d. p.r.n. DISCHARGE PLAN: The patient will be nonweightbearing on the right upper extremity. No active range of motion. Continue elbow, wrist and hand pendulums as shown by PTDesirae Hassan to shower after 10/04/18. Do not bathe, swim, or submerge the wound. Pain control, Percocet 5/325 one to two tabs every 4 to 6 hours as needed for pain, maximum daily dose of 8. Follow up with Dr. Landin in 10 to 14 days. Disposition: She is discharged to home. YAHIR LOUIE [id number]/[facility] #: [id number] MTDD
== END 2018-10-02 14:10 | disposition home or self-care (01) | DRG 483 ==
LOC: AA 10-01 07:12 → SSU 10-01 15:04
PROVIDERS: ADMIT Orthopaedic Surgery; ATTEND Orthopaedic Surgery
PROC: 0RRJ00Z Replacement of Right Shoulder Joint with Reverse Ball and Socket Synthetic Substitute, Open Approach (ICD-10-PCS; principal; 2018-10-01 09:45)
DX: M19.011 Primary osteoarthritis, right shoulder (principal); M75.101 Unspecified rotator cuff tear or rupture of right shoulder, not specified as traumatic; I10 Essential (primary) hypertension; K21.9 Gastro-esophageal reflux disease without esophagitis; E66.9 Obesity, unspecified; E78.2 Mixed hyperlipidemia; Z96.652 Presence of left artificial knee joint; I71.9 Aortic aneurysm of unspecified site, without rupture; R29.818 Other symptoms and signs involving the nervous system; E11.40 Type 2 diabetes mellitus with diabetic neuropathy, unspecified; F41.9 Anxiety disorder, unspecified; F32.9 Major depressive disorder, single episode, unspecified; Z88.1 Allergy status to other antibiotic agents; Z83.3 Family history of diabetes mellitus; Z82.3 Family history of stroke; Z82.49 Family history of ischemic heart disease and other diseases of the circulatory system; Z82.61 Family history of arthritis; Z68.30 Body mass index [BMI] 30.0-30.9, adult; Z80.9 Family history of malignant neoplasm, unspecified; Z72.89 Other problems related to lifestyle; Z79.82 Long term (current) use of aspirin; Z79.84 Long term (current) use of oral hypoglycemic drugs
CPT/HCPCS: 36415; 80048; 85014; 85018; 85049; 86850; 86900; 86901; 88304; 88311; A9270-GY; C1713; C1776; G8978-GP-CI; G8979-GP-CI; G8980-GP-CI; G8987-GO-CK; G8988-GO-CK; G8989-GO-CK; J0690; J1100; J1170; J1240; J1650; J1885; J2250; J2270; J2405; J2795; J3010

== ENCOUNTER 2019-12-29 12:33 | Emergency (ER) | payer MEDICARE ==
[2019-12-29 13:05] VITALS: BP 190/104
--- NOTE | 2019-12-29 13:56 | UC ---
Lower Extremity/Ankle HPI - HPI Summary HPI Summary: 74-year-old female presents with complaints of left medial ankle pain and swelling. Reports that she rolled the ankle when she accidentally tripped over a snowbank 4 days ago. She has been able to walk and bear weight since the injury although with some discomfort. Denies any numbness or tingling. - History of Current Complaint Chief Complaint: UCGeneralIllness Stated Complaint: L ANKLE INJURY Time Seen by Provider: 12/29/19 13:13 Hx Obtained From: Patient Pain Intensity: 8 - Allergies/Home Medications Allergies/Adverse Reactions: Allergies Allergy/AdvReac Type Severity Reaction Status Date / Time ampicillin Allergy Hives Verified 10/01/18 08:04 PMH/Surg Hx/FS Hx/Imm Hx Endocrine History: Diabetes Cardiovascular History: Hypertension GI/ History: Gastroesophageal Reflux - Surgical History Surgical History: Yes Surgery Procedure, Year, and Place: HYSTERECTOMY. CARPAL TUNNEL RIGHT WRIST. LEFT KNEE REPLACEMENT. LEFT SHOULDER ROTATOR CUFF REPAIR - Family History Known Family History: Positive: Hypertension - Mother - Social History Occupation: Retired Lives: With Family Alcohol Use: Occasionally Alcohol Amount: reports 2 glasses wine and 2-3 shots whiskey every weekend Substance Use Type: None Smoking Status (MU): Never Smoked Tobacco - Immunization History Most Recent Influenza Vaccination: 2018 Most Recent Pneumonia Vaccination: 2016 Review of Systems All Other Systems Reviewed And Are Negative: Yes Constitutional: Positive: Negative Skin: Negative: Bruising Respiratory: Positive: Negative Cardiovascular: Positive: Negative Gastrointestinal: Positive: Negative Genitourinary: Positive: Negative Motor: Negative: Weakness Neurovascular: Negative: Decreased Sensation Musculoskeletal: Positive: Other: - See HPI Neurological/Mental Status: Positive: Negative Is Patient Immunocompromised?: No Physical Exam - Summary Physical Exam Summary: GENERAL APPEARANCE: Alert and cooperative older adult female who appears to be in no acute distress. CARDIAC: Normal S1 and S2. No S3, S4 or murmurs. Rhythm is regular. There is no peripheral edema, cyanosis or pallor. Extremities are warm and well perfused. Capillary refill is less than 2 seconds. Peripheral pulses intact. LUNGS: Clear to auscultation without rales, rhonchi, wheezing or diminished breath sounds. ABDOMEN: Positive bowel sounds. Soft, nondistended, nontender. No guarding or rebound. No masses or hepatosplenomegally. MUSKULOSKELETAL: Normal muscular development. Limping gait. EXTREMITIES: Mild tenderness to the left medial ankle with moderate edema. No gross deformity or ecchymosis noted. Full ROM. Circulation and sensation intact. SKIN: Skin normal color, texture and turgor with no lesions or eruptions. Triage Information Reviewed: Yes Vital Signs: Initial Vital Signs Temp 98.0 F 12/29/19 12:59 Pulse 75 12/29/19 12:59 Resp 18 12/29/19 12:59 BP 190/104 12/29/19 12:59 Pulse Ox 99 12/29/19 12:59 Vital Signs Reviewed: Yes Diagnostics - Radiology No standard instances Radiology Interpretation Completed By: Radiologist Summary of Radiographic Findings: Order Information: ANKLE LEFT 3+VWS. Indication: Left ankle injury. 3 views of left ankle demonstrate soft tissue swelling surrounding the ankle. Heterotopic ossification is noted in the medial talus. No other fractures are noted. Mortise is intact. IMPRESSION: Soft tissue swelling. 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 Lower Extremity Course/Dx - Course Course Of Treatment: 74-year-old female presents with complaints of left medial ankle pain and swelling. Reports that she rolled the ankle when she accidentally tripped over a snowbank 4 days ago. She has been able to walk and bear weight since the injury although with some discomfort. Denies any numbness or tingling. Afebrile. Hypertensive otherwise vital signs stable. Patient had mild tenderness to the left medial ankle with moderate edema. No gross deformity or ecchymosis noted. Full ROM. Circulation and sensation intact. X-ray showed a heterotopic ossification adjacent to the medial talus but no acute fracture or dislocation. Results reviewed with the patient. Recommending conservative treatment for a left ankle sprain including [id number] analgesics and RICE. Patient was placed in an Hansel wrap and stirrup splint by the RN. She is to follow-up with orthopedic surgery in 7 days if no improvement in symptoms. Anticipatory guidance and warning symptoms were reviewed with the patient. Verbalizes understanding plan of care. - Differential Dx/Diagnosis Differential Diagnosis/HQI/PQRI: Contusion, Dislocation, Fracture (Closed), Sprain Provider Diagnosis: Left ankle sprain Discharge ED - Sign-Out/Discharge Documenting (check all that apply): Patient Departure All imaging exams completed and their final reports reviewed: Yes - Discharge Plan Condition: Stable Disposition: HOME Patient Education Materials: Ankle Sprain (ED), Ankle Stirrup Splint (ED) Referrals: Felipe Staples MD [Primary Care Provider] - Kaye Tai MD [Medical Doctor] - 7 Days (If no improvement. Call for appointment.) Additional Instructions: The x-ray performed in the clinic today showed no evidence of a fracture. Rest the ankle as much as possible. You may continue to walk and bear weight as tolerated. Wear the HANSEL wrap that was applied in the clinic to help with swelling. Wear the ankle splint applied in the clinic today until you are pain free. You may remove to sleep and shower but should wear at all other times. Apply ice to the affected area for 15-20 minutes at least 4 times a day to help with the pain and swelling. Elevate the foot to help reduce swelling. Take acetaminophen (Tylenol) or ibuprofen (Advil, Motrin) according to directions as needed for pain. Follow up with orthopedic surgery in 7 days if symptoms do not improve. Call for appointment. Seek immediate medical attention if you have severe pain not managed with pain medication, you are unable to walk or bear any weight, develop numbness or tingling in the foot or toes, or have any worsening of symptoms. - Billing Disposition and Condition Condition: STABLE Disposition: Home
== END 2019-12-29 14:23 | disposition home or self-care (01) ==
LOC: UCEAST 12:33
DX: S93.402A Sprain of unspecified ligament of left ankle, initial encounter (principal); M79.89 Other specified soft tissue disorders; W18.40XA Slipping, tripping and stumbling without falling, unspecified, initial encounter; Y92.9 Unspecified place or not applicable; E11.9 Type 2 diabetes mellitus without complications; I10 Essential (primary) hypertension; Z96.652 Presence of left artificial knee joint; Z88.0 Allergy status to penicillin
CPT/HCPCS: 99213; G0463